=== PATIENT | male | born 1945 | race Asian ===

== ENCOUNTER 2017-06-22 07:47 | Day surgery (SDC) | payer BC ==
[~2017-06-22 07:47] MED LIST: Buffered Lidocaine 0.9% SYRIN* 5 ML/SYR SYRINGE INTRADERM ONE; Famotidine IV* 10 MG/ML 2 ML (20 mg) IV ONE; Metoclopramide TAB* 10 MG PO ONE
[2017-06-22] MEDS ORDERED: Buffered Lidocaine 0.9% SYRIN* 5 ML/SYR SYRINGE ONE (07:56)
[2017-06-22] MEDS ORDERED: Famotidine IV* 10 MG/ML 2 ML (20 mg) ONE (07:56)
[2017-06-22] MEDS ORDERED: Metoclopramide TAB* 10 MG ONE ×2 (07:56→07:57)
[2017-06-22] MEDS ORDERED: fentaNYL* 50 MCG/ML 2 ML VIAL (100 MCG VIAL) ONE (09:18)
[2017-06-22] MEDS ORDERED: Midazolam* 1 MG/ML 2 ML VIAL (2 MG) ONE (09:18)
[2017-06-22] MEDS ORDERED: Bacitracin OPHTH.OINT* 3.5 GM ONE (09:34)
[2017-06-22] MEDS ORDERED: Lidocaine 1.5% EPI 1:200,000* 30 ML SDV ONE (09:34)
[2017-06-22] MEDS ORDERED: BSS OPTH.SOL* BTL ONE (09:34)
[2017-06-22] MEDS ORDERED: Lidocaine 2% PF * 5 ML VIAL ONE (09:58)
[2017-06-22] MEDS ORDERED: Propofol* 10 MG/ML 20 ML BTL IV PUSH ONE (09:58)
[2017-06-22] MEDS ORDERED: Ondansetron INJ* 2 MG/ML VIAL ONE (09:58)
[2017-06-22] MEDS ORDERED: Dexamethasone IV* 4 MG/ML 1 ML (4 MG) ONE (09:58)
[2017-06-22] MEDS ORDERED: Acetaminophen TAB* 325 MG PO PRN (10:19)
[2017-06-22] MEDS ORDERED: oxyCODONE TAB* 5 MG TAB PO PRN (10:19)
[2017-06-22] MEDS ORDERED: DiMENhydriNATE IV* 50 MG/ML VIAL IV PUSH PRN (10:19)
[2017-06-22 11:56] VITALS: BP 109/62
--- NOTE | 2017-06-22 22:14 | OP ---
DATE OF OPERATION: 06/22/17 - [facility] DATE OF : 47 SURGEON: Duncan Sher MD. HEADLIGHT ADJUSTER: None. ANESTHESIOLOGIST: Kassie Bowens MD ANESTHESIA: General with local. PRE-OP DIAGNOSIS: Bilateral upper lid blepharochalasis. POST-OP DIAGNOSIS: Bilateral upper lid blepharochalasis. OPERATIVE PROCEDURE: Bilateral upper lid blepharoplasty. COMPLICATIONS: None. BLOOD LOSS: Minimal. DESCRIPTION OF PROCEDURE: The patient was seen preoperatively in the holding area, where time was spent marking the ellipse of skin above each eyelid. Care was taken to ensure there was at least 20 mm of skin left after the ellipses would be removed. The lower aspect of each ellipse was approximately 7 mm from the margin. The patient did not have a prominent lid crease preoperatively and an attempt was made to maintain that. The patient also had an epicanthal fold superiorly in each eye as he was of descent and care was taken not to encroach on this area. Subsequently, the patient was brought to the operating room and given general anesthesia at his request. Approximately, 1.25 cc of 1.5 % lidocaine with epinephrine was infiltrated into each upper eyelid. A monopolar cutting cautery was used to incise along the previously made canales, thus creating an ellipse of skin muscle. This was dissected off the surface of the eyelid. Hemostasis was achieved with gentle cauterization as needed. The septum was violated and gentle pressure on the orbit produced retroseptal fat. This was clamped and cut with bipolar. It was then further cauterized. Clamps were removed. Attention was directed to the contralateral eye, where the same procedure was performed. It appeared that equal amount of skin and fat were removed from each eye. There was no active bleeding, so each upper eyelid wound was closed with running 6-0 gut suture. At the end of the case, there was good symmetry. The patient was able to close his eyes fully upon command after he woke up. There was no active bleeding. Topical bacitracin ointment was placed on the wound. The patient was sent to recovery room in stable condition with postop instructions and followup appointment given. [id number]/[facility] #: [id number] [facility]ENTER[facility]
== END 2017-06-22 11:56 | disposition home or self-care (01) ==
LOC: OREAST 07:47
PROVIDERS: ATTEND Ophthalmology
DX: H02.31 Blepharochalasis right upper eyelid (principal); H02.34 Blepharochalasis left upper eyelid; E78.5 Hyperlipidemia, unspecified; I10 Essential (primary) hypertension; Z79.82 Long term (current) use of aspirin
CPT/HCPCS: A9270-GY; J1100; J2250; J2405; J2704; J3010